=== PATIENT | female | born 1950 | race Caucasian/White ===

== ENCOUNTER 2016-11-27 06:32 | Day surgery (SDC) | payer MEDICARE ==
[~2016-11-27 06:32] MED LIST: KETOROLAC TROMETHAMINE 0.45% 4 DROP/0.4 ML DROPERETTE OD PRN
[2016-11-27] MEDS: LIDOCAINE 3.5% OPH GEL/PF 1 ML/TUBE OD PRN ×2 (07:00→07:30)
[2016-11-27] MEDS: TROPICAMIDE 1% OPH SOLN 3 ML OD PRN ×3 (07:01→07:28)
[2016-11-27] MEDS: CYCLOPENTOLATE 0.2%/PHENYLEPHRINE 1% OPH SOLN 2 ML OD PRN ×3 (07:01→07:28)
[2016-11-27] MEDS: BESIFLOXACIN HCL 0.6% OPH SUSP 5 ML BOTTLE OD PRN ×3 (07:02→08:12)
[2016-11-27] MEDS ORDERED: EPINEPHRINE INJ/PF 1 MG/1 ML AMPULE ONE (07:12)
[2016-11-27] MEDS ORDERED: LIDOCAINE 1% INJ-PF (10 MG/ML) 30 ML SDV ONE (07:12)
[2016-11-27] MEDS ORDERED: CHONDR SU A NA/HYALUR INTRAOC KIT (SURGICARE) ONE (07:12)
[2016-11-27] MEDS ORDERED: TOBRAMYCIN SULFATE/DEXAMETH OPH OINTMENT 3.5 GM ONE (07:12)
[2016-11-27] MEDS ORDERED: MIDAZOLAM 2 MG/2 ML INJ ONE ×2 (07:28→07:29)
== END 2016-11-27 08:44 | disposition home or self-care (01) ==
LOC: SC 06:32
PROVIDERS: ATTEND Ophthalmology
PROC: 08RK3JZ Replacement of Left Lens with Synthetic Substitute, Percutaneous Approach (ICD-10-PCS; principal; 2016-11-27 07:45)
DX: H25.11 Age-related nuclear cataract, right eye (principal); E11.9 Type 2 diabetes mellitus without complications; I11.0 Hypertensive heart disease with heart failure; I50.9 Heart failure, unspecified; I49.9 Cardiac arrhythmia, unspecified; Z79.4 Long term (current) use of insulin; Z79.899 Other long term (current) drug therapy; Z79.82 Long term (current) use of aspirin; Z88.8 Allergy status to other drugs, medicaments and biological substances; Z86.73 Personal history of transient ischemic attack (TIA), and cerebral infarction without residual deficits; Z95.810 Presence of automatic (implantable) cardiac defibrillator
CPT/HCPCS: 82962; 66984; V2630; J2250; J3490 ×3; A9270 ×2; J0171; 142

== ENCOUNTER 2016-12-11 06:16 | Day surgery (SDC) | payer MEDICARE ==
[~2016-12-11 06:16] MED LIST changes: -KETOROLAC TROMETHAMINE 0.45% 4 DROP/0.4 ML DROPERETTE OD PRN; +KETOROLAC TROMETHAMINE 0.45% 4 DROP/0.4 ML DROPERETTE OS PRN
[2016-12-11] MEDS ORDERED: FENTANYL CITRATE INJ/PF 100 MCG/2 ML AMPUL ONE (06:41)
[2016-12-11] MEDS ORDERED: MIDAZOLAM 2 MG/2 ML INJ ONE (06:41)
[2016-12-11] MEDS: TROPICAMIDE 1% OPH SOLN 3 ML OS PRN ×3 (06:46→07:06)
[2016-12-11] MEDS: BESIFLOXACIN HCL 0.6% OPH SUSP 5 ML BOTTLE OS PRN ×3 (06:46→07:48)
[2016-12-11] MEDS: CYCLOPENTOLATE 0.2%/PHENYLEPHRINE 1% OPH SOLN 2 ML OS PRN ×3 (06:46→07:06)
[2016-12-11] MEDS: TETRACAINE HCL 0.5% OPH SOLN 0.6 ML DROPERETTE OS PRN ×3 (06:47→07:31)
[2016-12-11] MEDS ORDERED: LIDOCAINE 1% INJ-PF (10 MG/ML) 30 ML SDV ONE (07:09)
[2016-12-11] MEDS ORDERED: TOBRAMYCIN SULFATE/DEXAMETH OPH OINTMENT 3.5 GM ONE (07:09)
[2016-12-11] MEDS ORDERED: EPINEPHRINE INJ/PF 1 MG/1 ML AMPULE ONE (07:09)
[2016-12-11] MEDS ORDERED: CHONDR SU A NA/HYALUR INTRAOC KIT (SURGICARE) ONE (07:09)
== END 2016-12-11 08:29 | disposition home or self-care (01) ==
LOC: SC 06:16
PROVIDERS: ATTEND Ophthalmology
PROC: 08RK3JZ Replacement of Left Lens with Synthetic Substitute, Percutaneous Approach (ICD-10-PCS; principal; 2016-12-11 07:30)
DX: H25.12 Age-related nuclear cataract, left eye (principal); Z98.41 Cataract extraction status, right eye; E11.9 Type 2 diabetes mellitus without complications; I48.91 Unspecified atrial fibrillation; I50.9 Heart failure, unspecified; D86.9 Sarcoidosis, unspecified; Z85.828 Personal history of other malignant neoplasm of skin; Z79.4 Long term (current) use of insulin; Z88.8 Allergy status to other drugs, medicaments and biological substances
CPT/HCPCS: 66984; 82962; V2630; J2250; J3490 ×3; A9270; J0171; J3010; 142

== ENCOUNTER 2018-03-06 15:31 | Observation (INO) | payer MEDICARE ==
--- NOTE | 2018-03-06 15:43 | ER Document Report ---
ED Neuro Symptoms/Deficit - General Stated Complaint: DIFFICULTY WITH SPEECH Time Seen by Provider: 03/06/18 15:38 Notes: Patient is having difficulty with her speech since 8:00 this morning. She apparently either cannot talk or she is not able to say the things she wants to say. She seems to understand questions that are asked of her. Has not had any headache. No loss of consciousness. Does not seem to affect her balance at all as she is able to walk without assistance. Not having any problem holding objects. Denies any headache. says she had an episode like this about 3 years ago but he does not know what the final diagnosis was except that she got better and is been fine until this morning. Patient does not have any asymmetry to her face or movements of her limbs. TRAVEL OUTSIDE OF THE [place] IN LAST 30 DAYS: No - Related Data Allergies/Adverse Reactions: enalapril Allergy (Severe, Verified 03/06/18 15:39) Anaphylaxis insulin detemir [From Levemir] Allergy (Mild, Verified 03/06/18 15:39) Past Medical History - Social History Family History: Reviewed & Not Pertinent - Past Medical History Cardiac Medical History: Reports: Hx Atrial Fibrillation, Hx Coronary Artery Disease, Hx Hypertension Denies: Hx Heart Attack Pulmonary Medical History: Denies: Hx Asthma Neurological Medical History: Reports: Hx Cerebrovascular Accident - 02/22 RESOLVED. Denies: Hx Seizures Endocrine Medical History: Reports: Hx Diabetes Mellitus Type 2 GI Medical History: Denies: Hx Hepatitis, Hx Hiatal Hernia, Hx Ulcer Infectious Medical History: Denies: Hx Hepatitis Past Surgical History: Reports: Hx Appendectomy, Hx Cholecystectomy, Hx Hysterectomy, Hx Pacemaker. Denies: Hx Mastectomy, Hx Open Heart Surgery Discharge - Discharge Referrals: KAISER VALLEJO MD [Primary Care Provider] - Follow up as needed
--- NOTE | 2018-03-06 16:26 | RADIOLOGY REPORT (SQ) ---
EXAM DESCRIPTION: CT HEAD WITHOUT COMPLETED DATE/TIME: 03/06/2018 4:11 pm REASON FOR STUDY: Difficulty with speech,? Stroke COMPARISON: 02/17/2016 TECHNIQUE: Axial images acquired through the brain without intravenous contrast. Images reviewed wi th bone, brain and subdural windows. Additional sagittal and coronal reconstructions were generated. Images stored on PACS. All CT scanners at this facility use dose modulation, iterative reconstruction, and/or weight based d osing when appropriate to reduce radiation dose to as low as reasonably achievable (ALARA). [facility]: Dose Right [facility]: CareDose [facility]: Dose Right [facility]: Teradose 4D [facility]: Smart [employer] RADIATION DOSE: CT Rad equipment meets quality standard of care and radiation dose reduction techniq ues were employed. CTDIvol: 53.2 mGy. DLP: 991 mGy-cm. mGy. LIMITATIONS: None. FINDINGS: VENTRICLES: Normal size and contour. CEREBRUM: No masses. No hemorrhage. No midline shift. No evidence for acute infarction. There are multiple bilateral areas of encephalomalacia and white matter hypodensity, including of the posterior right frontal lobe, anterior left parietal lobe, and left tai radiata. CEREBELLUM: No masses. No hemorrhage. No alteration of density. No evidence for acute infarction. EXTRAAXIAL SPACES: No fluid collections. No masses. ORBITS AND GLOBE: No intra- or extraconal masses. Normal contour of globe without masses. CALVARIUM: No fracture. PARANASAL SINUSES: No fluid or mucosal thickening. SOFT TISSUES: No mass or hematoma. OTHER: No other significant finding. IMPRESSION: No CT evidence of acute stroke or hemorrhage. There are multiple bilateral areas of ence phalomalacia and white matter hypodensity, including of the posterior right frontal lobe, anterior le ft parietal lobe, and left tai radiata, these findings are unchanged from examination dated 2015. MRI may be used to evaluate for acutely superimposed diffusion restricting infarction if devorah ed. EVIDENCE OF ACUTE STROKE: NO. COMMENT: Quality ID # [id number]: Final reports with documentation of one or more dose reduction techniques (e.g., Automated exposure control, adjustment of the mA and/or kV according to patient size, use of iterative reconstruction technique) TECHNICAL DOCUMENTATION: JOB ID: [id number] [employer]- All Rights Reserved Reading location - IP/workstation name: [email or web address]
[2018-03-06 16:36] LABS: ABSOLUTE BASOPHILS # (AUTO) 0.1 10^3/uL (0.0-0.2); ABSOLUTE EOSINOPHILS # (AUTO) 0.3 10^3/uL (0.0-0.6); ABSOLUTE LYMPHOCYTES (AUTO) 5.2 10^3/uL (0.5-4.7); ABSOLUTE MONOCYTES (AUTO) 1.4 10^3/uL (0.1-1.4); ABSOLUTE NEUT (AUTO) 5.7 10^3/uL (1.7-8.2); BASOPHILS % (AUTO) 0.7 % (0-2); EOSINOPHILS % (AUTO) 2.3 % (0-6); HEMATOCRIT 45.7 % (36.0-47.0); HEMOGLOBIN 15.4 g/dL (12.0-15.5); LYMPHOCYTES % (AUTO) 41.1 % (13-45); MEAN CORPUSCULAR HGB CONC 33.7 g/dL (32.0-36.0); MEAN CORPUSCULAR VOLUME 95 fl (80-97); MONOCYTES % (AUTO) 11.3 % (3-13); PLATELET COUNT 435 10^3/uL (150-450); RED BLOOD COUNT 4.81 10^6/uL (3.72-5.28); RED CELL DISTRIBUTION WIDTH 13.2 % (11.5-14.0); SEGMENTED NEUTROPHILS % (AUTO) 44.6 % (42-78); TOTAL CELLS COUNTED % (AUTO) 100 %; WHITE BLOOD COUNT 12.7 10^3/uL (4.0-10.5)
[2018-03-06 16:37] LABS: INTERNATIONAL RATION (INR) 0.98; PARTIAL THROMBOPLASTIN TIME 29.6 SEC (23.5-35.8); PROTHROMBIN TIME 13.5 SEC (11.4-15.4)
--- NOTE | 2018-03-06 16:42 | RADIOLOGY REPORT (SQ) ---
EXAM DESCRIPTION: CHEST SINGLE VIEW COMPLETED DATE/TIME: 03/06/2018 4:31 pm REASON FOR STUDY: Difficulty with speech,? Stroke COMPARISON: 02/17/2016 EXAM PARAMETERS: NUMBER OF VIEWS: One view. TECHNIQUE: Single frontal radiographic view of the chest acquired. RADIATION DOSE: NA LIMITATIONS: None. FINDINGS: LUNGS AND PLEURA: No opacities, masses or pneumothorax. No pleural effusion. MEDIASTINUM AND HILAR STRUCTURES: Calcified mediastinal and hilar nodes. HEART AND VASCULAR STRUCTURES: Stable heart size. No evidence of failure. BONES: No acute findings. HARDWARE: Stable position of defibrillator. OTHER: No other significant finding. IMPRESSION: Stable, chronic changes. TECHNICAL DOCUMENTATION: JOB ID: [id number] [employer]- All Rights Reserved Reading location - IP/workstation name: [email or web address]
[2018-03-06 16:46] LABS: ALANINE AMINOTRANSFERASE 19 U/L (9-52); ALKALINE PHOSPHATASE 91 U/L (38-126); ANION GAP 6 (5-19); ASPARTATE AMINO TRANSFERASE 23 U/L (14-36); BILIRUBIN,DIRECT 0.3 mg/dL (0.0-0.4); BILIRUBIN,TOTAL 0.9 mg/dL (0.2-1.3); BLOOD UREA NITROGEN 18 mg/dL (7-20); CALCIUM 9.9 mg/dL (8.4-10.2); CARBON DIOXIDE 31 mmol/L (22-30); CHLORIDE 101 mmol/L (98-107); CREATINE KINASE 23 U/L (30-135); GLUCOSE 155 mg/dL (75-110); POTASSIUM 4.7 mmol/L (3.6-5.0); SODIUM 138.3 mmol/L (137-145); TOTAL PROTEIN 7.4 g/dL (6.3-8.2)
[2018-03-06 17:10] LABS: CREATINE KINASE MB 0.69 ng/mL (<4.55)
--- NOTE | 2018-03-06 17:19 | ER Document Report ---
ED General - General Chief Complaint: S/S of Possible Stroke Stated Complaint: DIFFICULTY WITH SPEECH Time Seen by Provider: 03/06/18 15:38 Information source: Patient Notes: Patient is a 67-year-old female that presents with her awaking with some expressive aphasia. Patient's states that he noticed no slurred speech, weakness or numbness. The patient supposedly had a similar episode around 3 years ago and was admitted for this. Patient does not appropriately to questions. Patient appears to know what she wants to say but has some difficulty articulating. She denies any headache, neck pain, chest pain, abdominal pain, weakness or numbness. Patient and deny any recent infections such as runny nose, congestion, fevers, vomiting, or diarrhea. TRAVEL OUTSIDE OF THE [place] IN LAST 30 DAYS: No - HPI Onset: Other - See above Onset/Duration: Persistent, Better Quality of pain: No pain Severity: Moderate Pain Level: Denies Associated symptoms: Other - See above Exacerbated by: Denies Relieved by: Denies Similar symptoms previously: Yes Recently seen / treated by doctor: No - Related Data Allergies/Adverse Reactions: enalapril Allergy (Severe, Verified 03/06/18 15:39) Anaphylaxis insulin detemir [From Levemir] Allergy (Mild, Verified 03/06/18 15:39) Past Medical History - Social History Smoking Status: Never Smoker Chew tobacco use (# tins/day): No Frequency of alcohol use: None Drug Abuse: None Family History: Reviewed & Not Pertinent Patient has suicidal ideation: No Patient has homicidal ideation: No - Past Medical History Cardiac Medical History: Reports: Hx Atrial Fibrillation, Hx Coronary Artery Disease, Hx Hypertension Denies: Hx Heart Attack Pulmonary Medical History: Denies: Hx Asthma Neurological Medical History: Reports: Hx Cerebrovascular Accident - 02/22 RESOLVED. Denies: Hx Seizures Endocrine Medical History: Reports: Hx Diabetes Mellitus Type 2 Renal/ Medical History: Denies: Hx Peritoneal Dialysis GI Medical History: Denies: Hx Hepatitis, Hx Hiatal Hernia, Hx Ulcer Infectious Medical History: Denies: Hx Hepatitis Past Surgical History: Reports: Hx Appendectomy, Hx Cardiac Surgery - pacemaker placed, Hx Cholecystectomy, Hx Hysterectomy, Hx Pacemaker. Denies: Hx Mastectomy, Hx Open Heart Surgery Review of Systems - Review of Systems Constitutional: denies: Fever EENT: denies: Eye discharge, Nose discharge Respiratory: denies: Short of breath Gastrointestinal: denies: Vomiting Genitourinary: denies: Dysuria Musculoskeletal: denies: Leg swelling Skin: Other - no hives. denies: Rash Neurological/Psychological: Other - no slurred speech -: Yes All other systems reviewed and negative Physical Exam - Vital signs Vitals: Pulse Ox 98 03/06/18 16:14 Notes: Reviewed vital signs and nursing note as charted by RN. CONSTITUTIONAL: Alert and does nod appropriately to questions. Well-appearing; well-nourished HEAD: Normocephalic; atraumatic EYES: PERRL; full extraocular range of motion; conjunctivae clear, sclerae non- icteric ENT: Normal nose; no rhinorrhea; moist mucous membranes; pharynx without lesions noted NECK: Supple without meningismus; non-tender; no cervical lymphadenopathy, no m asses CARD: Regular rate and rhythm; no murmurs; symmetric distal pulses RESP: Normal chest excursion without splinting or tachypnea; breath sounds clear and equal bilaterally; no wheezes, no rhonchi, no rales ABD/GI: Normal bowel sounds; non-distended; soft, non-tender; no palpable organomegaly or masses BACK: The back appears normal and is non-tender to palpation EXT: Normal ROM in all joints; non-tender to palpation; no edema SKIN: No acute lesions noted NEURO: CN 2-12 intact; patient does appear to have some expressive aphasia; 5/5 bilateral upper and lower extremity strength with sensation intact to light touch PSYCH: The patient's mood and manner are appropriate. Grooming and personal hygiene are appropriate. Course - Re-evaluation Re-evalutation: Given the above history and physical examination, we will order CT scan of the head, basic labs, cardiac labs, and reassess. Given the time onset of the symptomatology, I do not believe that the patient is a TPA candidate. Given that the patient's NIH score is only a 1, with a VAN negative exam, I do not believe a CTA head and neck with contrast is necessary at this moment. EKG shows a rate of 85, atrial sensed pacemaker with no ST elevation or depressi on. No change from previous findings. 03/06/18 17:20 CT scan of the head and laboratory values and EKG as recorded. Patient still has no weakness or numbness. CT scan does show some encephalomalacia which appears to be chronic? Given the above history and physical examination, I believe that the patient requires observation for further investigation including an MRI. Patient will be admitted to the hospitalist. - Vital Signs Vital signs: Temp Pulse Resp BP Pulse Ox 78 18 115/68 98 03/06/18 16:20 03/06/18 16:20 03/06/18 16:20 03/06/18 16:20 - Laboratory Result Diagrams: 03/06/18 16:22 03/06/18 16:22 Laboratory results interpreted by me: 03/06/18 03/06/18 03/06/18 16:19 16:22 16:22 WBC 12.7 H Absolute Lymphocytes 5.2 H Carbon Dioxide 31 H Glucose 155 H POC Glucose 145 H Creatine Kinase 23 L Discharge - Discharge Clinical Impression: Expressive aphasia Condition: Fair Disposition: ADMITTED OBSERVATION Admitting Provider: Hospitalist Unit Admitted: Telemetry Referrals: KAISER VALLEJO MD [Primary Care Provider] - Follow up as needed
[2018-03-06 17:26] LABS: TROPONIN I 0.036 ng/mL
[2018-03-06] MEDS ORDERED: ZOLPIDEM TARTRATE 5 MG TABLET PO PRN (18:00)
[2018-03-06] MEDS ORDERED: ONDANSETRON HCL INJ/PF 4 MG/2 ML SDV IV PRN (18:00)
[2018-03-06] MEDS ORDERED: DEXTROSE 40% GEL 15 GM TUBE PO PRN ×2 (18:15)
[2018-03-06] MEDS ORDERED: INSULIN REG, HUMAN 100 UNIT/ML 3 ML VIAL (PYX) SUBCUT PRN (18:15)
[2018-03-06] MEDS ORDERED: GLUCAGON,HUMAN RECOMB 1 MG INJ IM PRN (18:15)
[2018-03-06] MEDS ORDERED: DEXTROSE 50%-WATER 25 GM/50 ML DISP.SYRIN IV PRN ×2 (18:15)
--- NOTE | 2018-03-06 18:30 | PDOC H&P ---
History of Present Illness Admission Date/PCP: 03/06/18 17:32 KAISER VALLEJO MD Patient complains of: Difficulty in expressing her feelings/thoughts History of Present Illness: DIANA OWENS is a 67 year old female history of coronary artery disease with defibrillator placement, history of wall replacement patient does not know exactly what kind of surgery, hypertension, diabetes mellitus, hyperlipidemia, came to the emergency room with complaints of difficulty in expressing her feelings and thoughts. According to the patient know what to say but is unable to say so. Denies any complaints of headaches dizziness falls, seizures. Problems with urination or bowel movement. His any recent upper respiratory tract infections. Denies any problems with walking. denies any nausea vomiting diarrhea. In the emergency room CT head without contrast was done and was compared to previous CT scan done 3 years ago basically showing similar findings an encephalomalacia. He went to see the patient in the emergency room patient is comfortably in the bed smiling able to follow the commands. But she has a difficulty in expression she is unable to give her date of unable to give her home address unable to give her past medical history. Past Medical History Cardiac Medical History: Reports: Atrial Fibrillation, Coronary Artery Disease, Hypertension Denies: Myocardial Infarction Pulmonary Medical History: Denies: Asthma Neurological Medical History: Denies: Seizures Endocrine Medical History: Reports: Diabetes Mellitus Type 2 GI Medical History: Denies: Hepatitis, Hiatal Hernia Hematology: Denies: Anemia, Sickle Cell Disease Past Surgical History Past Surgical History: Reports: Appendectomy, Cholecystectomy, Hysterectomy, Pacemaker Denies: Amputation, Mastectomy Social History Smoking Status: Never Smoker Frequency of Alcohol Use: None Hx Recreational Drug Use: No Drugs: None Hx Prescription Drug Abuse: No - Advance Directive Resuscitation Status: Full Code Family History Family History: Reviewed & Not Pertinent Parental Family History Reviewed: Yes - Brother has of cancer Children Family History Reviewed: Yes Sibling(s) Family History Reviewed.: Yes Medication/Allergy Home Medications: Bisoprolol Fumarate 0.5 tab PO QAM 02/17/16 Digoxin [Lanoxin 0.25 mg Tablet] 1 tab PO Q48H 02/17/16 Insulin Glargine,Hum.rec.anlog [Lantus Insulin 100 Unit/mL] 38 units SQ QHS 02/17/16 Isosorbide Mononitrate [Isosorbide Mononitrate ER] 1 tab PO TID 02/17/16 Spironolactone 0.5 tab PO DAILY 02/17/16 Furosemide [Lasix 20 mg Tablet] 2 tab PO Q12 02/18/16 Acetaminophen [Acetaminophen Extra Strength] 1,000 mg PO DAILY 11/26/16 Aspirin [Aspirin EC] 81 mg PO DAILY 11/26/16 Losartan Potassium 100 mg PO DAILY 11/26/16 Sotalol HCl [Sotalol] 80 mg PO DAILY 11/26/16 Duloxetine HCl [Cymbalta] 60 mg PO DAILY 12/11/16 Allergies/Adverse Reactions: enalapril Allergy (Severe, Verified 03/06/18 15:39) Anaphylaxis insulin detemir [From Levemir] Allergy (Mild, Verified 03/06/18 15:39) Review of Systems Constitutional: ABSENT: fatigue, fever(s), headache(s), weakness Eyes: ABSENT: visual disturbances Ears: ABSENT: hearing changes Cardiovascular: ABSENT: dyspnea on exertion, edema, orthropnea Respiratory: ABSENT: cough, dyspnea, hemoptysis Gastrointestinal: ABSENT: diarrhea, nausea, vomiting Musculoskeletal: ABSENT: back pain, joint swelling Neurological: PRESENT: abnormal speech. ABSENT: confusion, convulsions, dizziness, focal weakness, frequent falls, lack of coordination Psychiatric: ABSENT: anxiety, depression Physical Exam Vital Signs: Temp Pulse Resp BP Pulse Ox 78 18 115/68 98 03/06/18 16:20 03/06/18 16:20 03/06/18 16:20 03/06/18 16:20 Intake & Output 03/05/18 03/06/18 03/07/18 06:59 06:59 06:59 Weight 58.9 kg General appearance: PRESENT: no acute distress Head exam: PRESENT: atraumatic Eye exam: PRESENT: PERRLA Neck exam: ABSENT: carotid bruit, JVD, lymphadenopathy, thyromegaly Respiratory exam: PRESENT: clear to auscultation shanique. ABSENT: rales, rhonchi, wheezes Cardiovascular exam: PRESENT: RRR, systolic murmur, other - Harsh systolic murmur. Patient is giving history of wall replacement we do not know the specific details.. ABSENT: diastolic murmur, rubs GI/Abdominal exam: PRESENT: normal bowel sounds, soft. ABSENT: distended, guarding, mass, organolmegaly, rebound, tenderness Neurological exam: PRESENT: alert, awake, oriented to person, oriented to place, oriented to time, oriented to situation, CN II-XII grossly intact. ABSENT: motor sensory deficit Psychiatric exam: PRESENT: appropriate affect, normal mood. ABSENT: homicidal ideation, suicidal ideation Results Laboratory Results: 03/06/18 16:22 03/06/18 16:22 03/06/18 03/06/18 16:22 16:22 WBC 12.7 H RBC 4.81 Hgb 15.4 Hct 45.7 MCV 95 MCH 32.0 MCHC 33.7 RDW 13.2 Plt Count 435 Seg Neutrophils % 44.6 Lymphocytes % 41.1 Monocytes % 11.3 Eosinophils % 2.3 Basophils % 0.7 Absolute Neutrophils 5.7 Absolute Lymphocytes 5.2 H Absolute Monocytes 1.4 Absolute Eosinophils 0.3 Absolute Basophils 0.1 Sodium 138.3 Potassium 4.7 Chloride 101 Carbon Dioxide 31 H Anion Gap 6 BUN 18 Creatinine 0.73 Est GFR ( Amer) > 60 Est GFR (Non-Af Amer) > 60 Glucose 155 H Calcium 9.9 Total Bilirubin 0.9 AST 23 ALT 19 Alkaline Phosphatase 91 Total Protein 7.4 Albumin 4.0 03/06/18 03/06/18 16:22 16:22 Creatine Kinase 23 L CK-MB (CK-2) 0.69 Troponin I 0.036 Impressions: Chest X-Ray 03/06/18 15:45 IMPRESSION: Stable, chronic changes. Head CT 03/06/18 15:45 IMPRESSION: No CT evidence of acute stroke or hemorrhage. There are multiple bilateral areas of encephalomalacia and white matter hypodensity, including of the posterior right frontal lobe, anterior left parietal lobe, and left tai radiata, these findings are unchanged from examination dated 02/17/2016. MRI may be used to evaluate for acutely superimposed diffusion restricting infarction if desired. EVIDENCE OF ACUTE STROKE: NO. Assessment & Plan - Diagnosis (1) Expressive aphasia Is this a current diagnosis for this admission?: Yes Plan: 03/06/2018-plan is to put the patient in observation and telemetry. Cardiac monitoring. Swallowing evaluation. Speech therapy consult. PT OT consult. MRI of the brain without contrast was requested. Carotid Doppler was requested. Patient was already on aspirin started on Plavix 75 mg p.o. daily. Started on simvastatin 20 mg p.o. nightly. We are going to check lipid panel tomorrow. Neurochecks every 4 hours for 24 hours requested. Aspiration fall seizure pre cautions were placed. (2) Diabetes Qualifiers: Diabetes mellitus type: type 2 Is this a current diagnosis for this admission?: Yes Plan: 03/06/2018-patient's blood sugar is 155 she was placed on insulin sliding scale before meals and at bedtime. Hemoglobin A1c was requested for tomorrow. Started on diabetic diet. Dietary consult was requested. Patient on glargine insulin 28 units at night. (3) Atrial fibrillation Is this a current diagnosis for this admission?: Yes Plan: 03/06/2018 patient has history of atrial fibrillation not on Coumadin or Eliquis. EKG shows pacemaker rhythm. (4) Pacemaker Is this a current diagnosis for this admission?: Yes Plan: 03/06/2018-patient has a pacemaker. EKG shows pacemaker rhythm. Patient denies any chest pains. (5) Encephalomalacia Is this a current diagnosis for this admission?: Yes Plan: 03/06/2018-CT scan done today shows encephalopmalacia which is bilateral and white matter hypodensity, including of the posterior right frontal lobe, an terior left parietal lobe, left coronary radiator. The findings are compared to the CT scan was done 3 years ago no acute changes compared to the previous CT scan that was done 3 years ago. - Time Time Spent: 50 to 70 Minutes Critical Time spent with patient: 15-24 minutes Medications reviewed and adjusted accordingly: Yes Anticipated discharge: Home
[2018-03-06] MEDS ORDERED: DIGOXIN 0.25 MG TABLET PO SCH (19:00)
[2018-03-06] MEDS ORDERED: FUROSEMIDE 20 MG TABLET PO SCH (22:00)
[2018-03-06] MEDS ORDERED: INSULIN GLARGINE,HUM.REC.ANLOG 300 UNIT/3 ML INSULN.PEN SUBCUT SCH (22:00)
[2018-03-06] MEDS: ISOSORBIDE MONONITRATE 30 MG TAB.ER.24H PO SCH (22:31)
[2018-03-06] MEDS: FAMOTIDINE 20 MG TABLET PO SCH (22:31)
[2018-03-06] MEDS: SOTALOL HCL 80 MG TABLET PO SCH (22:31)
[2018-03-06] MEDS: SIMVASTATIN 10 MG TABLET PO SCH (22:31)
[2018-03-06] MEDS: INSULIN GLARGINE,HUM.REC.ANLOG 300 UNIT/3 ML INSULN.PEN SUBCUT SCH (22:32)
[2018-03-06 23:15] LABS: CREATINE KINASE MB 0.4 ng/mL (<4.55); TROPONIN I 0.033 ng/mL
[2018-03-07] MEDS: ISOSORBIDE MONONITRATE 30 MG TAB.ER.24H PO SCH ×3 (05:43→21:45)
[2018-03-07 06:26] LABS: INTERNATIONAL RATION (INR) 0.98; PROTHROMBIN TIME 13.5 SEC (11.4-15.4)
[2018-03-07 06:27] LABS: ABSOLUTE BASOPHILS # (AUTO) 0.1 10^3/uL (0.0-0.2); ABSOLUTE EOSINOPHILS # (AUTO) 0.2 10^3/uL (0.0-0.6); ABSOLUTE LYMPHOCYTES (AUTO) 4.6 10^3/uL (0.5-4.7); ABSOLUTE MONOCYTES (AUTO) 1.5 10^3/uL (0.1-1.4); ABSOLUTE NEUT (AUTO) 9.3 10^3/uL (1.7-8.2); BASOPHILS % (AUTO) 0.4 % (0-2); EOSINOPHILS % (AUTO) 1.3 % (0-6); HEMATOCRIT 44.6 % (36.0-47.0); HEMOGLOBIN 15.3 g/dL (12.0-15.5); LYMPHOCYTES % (AUTO) 29.6 % (13-45); MEAN CORPUSCULAR HEMOGLOBIN 32.5 pg (27.0-33.4); MEAN CORPUSCULAR HGB CONC 34.4 g/dL (32.0-36.0); MEAN CORPUSCULAR VOLUME 95 fl (80-97); MONOCYTES % (AUTO) 9.3 % (3-13); PLATELET COUNT 406 10^3/uL (150-450); RED BLOOD COUNT 4.71 10^6/uL (3.72-5.28); RED CELL DISTRIBUTION WIDTH 12.9 % (11.5-14.0); SEGMENTED NEUTROPHILS % (AUTO) 59.4 % (42-78); TOTAL CELLS COUNTED % (AUTO) 100 %; WHITE BLOOD COUNT 15.7 10^3/uL (4.0-10.5)
[2018-03-07 07:01] LABS: ALANINE AMINOTRANSFERASE 17 U/L (9-52); ALBUMIN 3.6 g/dL (3.5-5.0); ALKALINE PHOSPHATASE 82 U/L (38-126); ANION GAP 10 (5-19); ASPARTATE AMINO TRANSFERASE 28 U/L (14-36); BILIRUBIN,DIRECT 0.3 mg/dL (0.0-0.4); BILIRUBIN,TOTAL 0.7 mg/dL (0.2-1.3); BLOOD UREA NITROGEN 17 mg/dL (7-20); CALCIUM 9.5 mg/dL (8.4-10.2); CARBON DIOXIDE 26 mmol/L (22-30); CHLORIDE 104 mmol/L (98-107); CHOLESTEROL 193.32 mg/dL (0-200); GLUCOSE 111 mg/dL (75-110); SODIUM 140.1 mmol/L (137-145); TOTAL PROTEIN 7.1 g/dL (6.3-8.2); TRIGLYCERIDES 254 mg/dL (<150)
[2018-03-07 07:10] LABS: CREATINE KINASE MB 0.4 ng/mL (<4.55); TROPONIN I 0.037 ng/mL
[2018-03-07 07:12] LABS: DIRECT LDL 118 mg/dL (<100)
[2018-03-07 07:15] LABS: CREATINE KINASE < 20 U/L (30-135); VLDL CHOLESTEROL 50.8 mg/dL (10-31)
[2018-03-07] MEDS ORDERED: (PENDING PHARMACY ID) (Bisoprolol Fumarate [Zebeta 5 Mg Tablet] 2.5 MG) PO SCH (08:00)
[2018-03-07] MEDS ORDERED: BISOPROLOL FUMARATE PO SCH (08:00)
--- NOTE | 2018-03-07 09:15 | PDOC PROGRESS REPORT ---
Subjective Progress Note for:: 03/07/18 Subjective:: Patient having the low-grade fever since the admission T-max is 99.7. WBC went up to 15,700. Chest x-ray was normal. I started her on doxycycline 100 mg p.o. twice daily. Patient says she still does not know where she is at. No focal neurological deficits. But she has still have expressive aphasia. Reason For Visit: EXPRESSIVE APHASIS Physical Exam Vital Signs: Temp Pulse Resp BP Pulse Ox 99.7 F 106 H 16 116/68 95 03/07/18 07:18 03/07/18 08:00 03/07/18 08:00 03/07/18 08:00 03/07/18 08:00 Intake & Output 03/06/18 03/07/18 03/08/18 06:59 06:59 06:59 Output Total 0 Balance 0 Weight 58.4 kg General appearance: PRESENT: no acute distress Head exam: PRESENT: atraumatic Eye exam: PRESENT: PERRLA Neck exam: ABSENT: carotid bruit, JVD, lymphadenopathy, thyromegaly Respiratory exam: PRESENT: clear to auscultation shanique. ABSENT: rales, rhonchi, wheezes Cardiovascular exam: PRESENT: RRR. ABSENT: diastolic murmur, rubs, systolic murmur GI/Abdominal exam: PRESENT: normal bowel sounds, soft. ABSENT: distended, guarding, mass, organolmegaly, rebound, tenderness Neurological exam: PRESENT: alert, awake, CN II-XII grossly intact, other - Has expressive aphasia. She does not know where she is at. Unable to give her date of . But she states her is coming later on to check on her. Psychiatric exam: PRESENT: appropriate affect, normal mood. ABSENT: homicidal ideation, suicidal ideation Results Laboratory Results: 03/07/18 04:59 03/07/18 04:59 03/06/18 03/06/18 03/07/18 16:22 16:22 04:59 WBC 12.7 H 15.7 H RBC 4.81 4.71 Hgb 15.4 15.3 Hct 45.7 44.6 MCV 95 95 MCH 32.0 32.5 MCHC 33.7 34.4 RDW 13.2 12.9 Plt Count 435 406 Seg Neutrophils % 44.6 59.4 Lymphocytes % 41.1 29.6 Monocytes % 11.3 9.3 Eosinophils % 2.3 1.3 Basophils % 0.7 0.4 Absolute Neutrophils 5.7 9.3 H Absolute Lymphocytes 5.2 H 4.6 Absolute Monocytes 1.4 1.5 H Absolute Eosinophils 0.3 0.2 Absolute Basophils 0.1 0.1 Sodium 138.3 Potassium 4.7 Chloride 101 Carbon Dioxide 31 H Anion Gap 6 BUN 18 Creatinine 0.73 Est GFR ( Amer) > 60 Est GFR (Non-Af Amer) > 60 Glucose 155 H Calcium 9.9 Magnesium Total Bilirubin 0.9 AST 23 ALT 19 Alkaline Phosphatase 91 Total Protein 7.4 Albumin 4.0 Triglycerides Cholesterol LDL Cholesterol Direct VLDL Cholesterol HDL Cholesterol TSH 03/07/18 03/07/18 04:59 04:59 WBC RBC Hgb Hct MCV MCH MCHC RDW Plt Count Seg Neutrophils % Lymphocytes % Monocytes % Eosinophils % Basophils % Absolute Neutrophils Absolute Lymphocytes Absolute Monocytes Absolute Eosinophils Absolute Basophils Sodium 140.1 Potassium 4.0 Chloride 104 Carbon Dioxide 26 Anion Gap 10 BUN 17 Creatinine 0.59 Est GFR ( Amer) > 60 Est GFR (Non-Af Amer) > 60 Glucose 111 H Calcium 9.5 Magnesium 2.3 Total Bilirubin 0.7 AST 28 ALT 17 Alkaline Phosphatase 82 Total Protein 7.1 Albumin 3.6 Triglycerides 254 H Cholesterol 193.32 LDL Cholesterol Direct 118 H VLDL Cholesterol 50.8 H HDL Cholesterol 21 L TSH 0.59 03/06/18 03/06/18 03/06/18 16:22 16:22 22:06 Creatine Kinase 23 L 23 L CK-MB (CK-2) 0.69 Troponin I 0.036 NT-Pro-B Natriuret Pep 03/06/18 03/07/18 03/07/18 22:06 04:59 04:59 Creatine Kinase < 20 L CK-MB (CK-2) 0.40 0.40 Troponin I 0.033 0.037 NT-Pro-B Natriuret Pep 3880 H Impressions: Chest X-Ray 03/06/18 15:45 IMPRESSION: Stable, chronic changes. Head CT 03/06/18 15:45 IMPRESSION: No CT evidence of acute stroke or hemorrhage. There are multiple bilateral areas of encephalomalacia and white matter hypodensity, including of the posterior right frontal lobe, anterior left parietal lobe, and left tai radiata, these findings are unchanged from examination dated 02/17/2016. MRI may be used to evaluate for acutely superimposed diffusion restricting infarction if desired. EVIDENCE OF ACUTE STROKE: NO. Assessment & Plan - Diagnosis (1) Expressive aphasia Is this a current diagnosis for this admission?: Yes Plan: 03/06/2018-plan is to put the patient in observation and telemetry. Cardiac monitoring. Swallowing evaluation. Speech therapy consult. PT OT consult. MRI of the brain without contrast was requested. Carotid Doppler was requested. Patient was already on aspirin started on Plavix 75 mg p.o. daily. Started on simvastatin 20 mg p.o. nightly. We are going to check lipid panel tomorrow. Neurochecks every 4 hours for 24 hours requested. Aspiration fall seizure precautions were placed. 03/07/2018-CT head was negative for acute changes. But it shows encephalo malasia. Unable to do the MRI of the head because of the pacemaker. We are going to continue to follow her closely speech consult was requested PT OT consult was requested. swallow evaluation was negative. (2) Diabetes Qualifiers: Diabetes mellitus type: type 2 Is this a current diagnosis for this admission?: Yes Plan: 03/06/2018-patient's blood sugar is 155 she was placed on insulin sliding scale before meals and at bedtime. Hemoglobin A1c was requested for tomorrow. Started on diabetic diet. Dietary consult was requested. Patient on glargine insulin 28 units at night. 03/07/2018 hemoglobin A1c is 7.1. Latest blood sugar is 113. She is on glargine insulin 20 units at bedtime and she is also on insulin sliding scale. Plan is to continue the present management. (3) Atrial fibrillation Qualifiers: Atrial fibrillation type: chronic Qualified Code(s): I48.2 - Chronic atrial fibrillation Is this a current diagnosis for this admission?: Yes Plan: 03/06/2018 patient has history of atrial fibrillation not on Coumadin or Eliquis. EKG shows pacemaker rhythm. 03/07/2018 patient is giving history of atrial fibrillation. EKG shows pacemaker rhythm. She is not on any anticoagulation she was on aspirin 81 mg p.o. daily. I started her on Plavix 75 mg p.o. daily. (4) Pacemaker Is this a current diagnosis for this admission?: Yes Plan: 03/06/2018-patient has a pacemaker. EKG shows pacemaker rhythm. Patient denies any chest pains. 03/07/2018 patient has history of pacemaker placed. Single. No complaints of chest pain. EKG shows pacemaker rhythm. (5) Encephalomalacia Is this a current diagnosis for this admission?: Yes Plan: 03/06/2018-CT scan done today shows encephalopmalacia which is bilateral and wh ite matter hypodensity, including of the posterior right frontal lobe, anterior left parietal lobe, left coronary radiator. The findings are compared to the CT scan was done 3 years ago no acute changes compared to the previous CT scan that was done 3 years ago. 03/07/2018-patient has an careful malacia on the CT scan she has the same findings in the CT done 3 years ago. Unable to do the MRI of the brain. Carotid Doppler is pending. Going to arrange for the CTA of the neck with IV contrast. (6) Leukocytosis Is this a current diagnosis for this admission?: Yes Plan: 03/07/2018-WBCs increased to 15,700, patient is having the low-grade fever temperature is 99.7. Patient was started on doxycycline 100 mg p.o. twice saba y. Chest x-ray was negative for infiltrates. I am going to request for urine analysis urine culture and blood cultures times 2. I am going to keep the patient on observation for another day because of the increasing WBC and low- grade fever. - Time Time Spent with patient: 15-24 minutes Medications reviewed and adjusted accordingly: Yes Anticipated discharge: Home
[2018-03-07] MEDS: DULOXETINE HCL 30 MG CAPSULE.DR PO SCH (09:52)
[2018-03-07] MEDS: ATENOLOL 50 MG TABLET PO SCH (09:53)
[2018-03-07] MEDS: SOTALOL HCL 80 MG TABLET PO SCH ×2 (09:53→21:45)
[2018-03-07] MEDS: SPIRONOLACTONE 25 MG TABLET PO SCH (09:53)
[2018-03-07] MEDS: CLOPIDOGREL BISULFATE 75 MG TABLET PO SCH (09:53)
[2018-03-07] MEDS: FAMOTIDINE 20 MG TABLET PO SCH ×2 (09:53→21:45)
[2018-03-07] MEDS: DOXYCYCLINE HYCLATE 100 MG TABLET PO SCH ×2 (09:53→21:45)
[2018-03-07] MEDS: LOSARTAN POTASSIUM 50 MG TABLET PO SCH (09:53)
[2018-03-07] MEDS: ASPIRIN 81 MG TABLET, ENT COATED PO SCH (09:53)
[2018-03-07] MEDS: DOCUSATE SODIUM 100 MG CAPSULE PO SCH (09:54)
[2018-03-07] MEDS: ENOXAPARIN SODIUM INJ 40 MG/0.4 ML DISP.SYRIN SUBCUT SCH (09:54)
[2018-03-07] MEDS ORDERED: SOTALOL HCL 80 MG TABLET PO SCH (10:00)
[2018-03-07] MEDS ORDERED: SPIRONOLACTONE 25 MG TABLET PO SCH (10:00)
[2018-03-07] MEDS ORDERED: FUROSEMIDE 40 MG TABLET PO SCH (10:00)
[2018-03-07] MEDS ORDERED: ISOSORBIDE MONONITRATE 30 MG TAB.ER.24H PO SCH (10:00)
[2018-03-07] MEDS ORDERED: (PENDING PHARMACY ID) (Losartan Potassium [Losartan Potassium] 100 MG) PO SCH (10:00)
[2018-03-07 11:27] LABS: CREATINE KINASE MB 0.48 ng/mL (<4.55); TROPONIN I 0.03 ng/mL
--- NOTE | 2018-03-07 12:21 | RADIOLOGY REPORT (SQ) ---
EXAM DESCRIPTION: CAROTID DOPPLER COMPLETED DATE/TIME: 03/06/2018 8:37 pm REASON FOR STUDY: cva E11.40 TYPE 2 DIABETES MELLITUS WITH DIABETIC NEUROPATHY, UN D50.9 IRON DEFI CIENCY ANEMIA, UNSPECIFIED I50.32 CHRONIC DIASTOLIC (CONGESTIVE) HEART FAILURE COMPARISON: None. TECHNIQUE: Grayscale ultrasound, Doppler velocity and spectra, and color Doppler images acquired of the extra-cranial carotid and vertebral arteries. Images stored on PACS. LIMITATIONS: None. FINDINGS: RIGHT CAROTID CCA Velocities: Within normal limits. ICA Velocities Peak systolic 1.0 m/s. End diastolic 0.28 m/s. Proximal ICA/CCA peak systolic ratio 1.2. Soft plaque. Less than 50% narrowing. LEFT CAROTID CCA Velocities: Within normal limits. ICA Velocities Peak systolic 1.1 m/s. End diastolic 0.30 m/s. Proximal ICA/CCA peak systolic ratio 1.5. Soft plaque noted. Less than 50% narrowing. VERTEBRAL ARTERIES: Antegrade flow. Normal waveforms. SUBCLAVIAN ARTERIES: No finding. OTHER: No other significant finding. IMPRESSION: NO HEMODYNAMICALLY SIGNIFICANT STENOSIS. COMMENT: Quality ID #195: Velocity criteria are extrapolated from the diameter data as defined by t he Society of Radiologists in Ultrasound Consensus Conference. Radiology 2003: 229; 340-346. TECHNICAL DOCUMENTATION: JOB ID: [id number] [employer]- All Rights Reserved Reading location - IP/workstation name: [email or web address]
--- NOTE | 2018-03-07 12:23 | RADIOLOGY REPORT (SQ) ---
EXAM DESCRIPTION: CTA NECK COMPLETED DATE/TIME: 03/07/2018 10:27 am REASON FOR STUDY: cva E11.40 TYPE 2 DIABETES MELLITUS WITH DIABETIC NEUROPATHY, UN D50.9 IRON DEFI CIENCY ANEMIA, UNSPECIFIED I50.32 CHRONIC DIASTOLIC (CONGESTIVE) HEART FAILURE COMPARISON: Carotid Doppler from 1 day previously. TECHNIQUE: Axial dynamic scanning technique with dynamic contrast enhancement through the extra-aircraft metalsmith nial carotid and vertebral arteries. Multiplanar reconstruction. 3-D MIPS and Volume-rendered imag es acquired at the workstation and saved to PACS. Images are reviewed in soft tissue, bone, lung w indows. All CT scanners at this facility use dose modulation, iterative reconstruction, and/or weight based d osing when appropriate to reduce radiation dose to as low as reasonably achievable (ALARA). [facility]: Dose Right [facility]: CareDose [facility]: Dose Right [facility]: Teradose 4D [facility]: Ventario CONTRAST TYPE AND DOSE: contrast/concentration: Isovue 350.00 mg/ml; Total Contrast Delivered: 70.0 ml; Total Saline Delivered: 75.0 ml RENAL FUNCTION: GFR > 60. LIMITATIONS: None. FINDINGS: AORTIC ARCH: Normal three-vessel origin. Bilateral subclavian arteries are patent. No d issection. RIGHT CAROTIDS: Patent common, internal and external carotid arteries without suggestion of significa nt stenosis or irregular plaque. No dissection. RIGHT VERTEBRAL: Patent. No dissection. LEFT CAROTIDS: Patent common, internal and external carotid arteries without suggestion of significan t stenosis or irregular plaque. No dissection. LEFT VERTEBRAL: Patent. No dissection. OTHER: No enhancing visualized brain lesions. Bilateral effusions with ground-glass infiltrates and scarring in the upper lung torrez. Extensive mediastinal adenopathy, likely hilar adenopathy. Much of this looks calcified. Presumed history of sarcoid or similar pathology. OTHER: 3-D reconstructions confirm findings. IMPRESSION: NORMAL CTA OF THE EXTRA-CRANIAL CAROTID AND VERTEBRAL ARTERIES. COMMENT: Quality ID #195: Measurements of distal internal carotid diameter were used as the denomina tor for stenosis measurement. TECHNICAL DOCUMENTATION: JOB ID: [id number] Quality ID # [id number]: Final reports with documentation of one or more dose reduction techniques (e.g., Au tomated exposure control, adjustment of the mA and/or kV according to patient size, use of iterative reconstruction technique) 2010 [employer]- All Rights Reserved Reading location - IP/workstation name: [email or web address]
--- NOTE | 2018-03-07 12:52 | EKG REPORT ---
SEVERITY:- ABNORMAL ECG - ATRIAL-SENSED VENTRICULAR-PACED RHYTHM : Confirmed by: Shiraz Romero 07-Mar-2018 12:51:27
--- NOTE | 2018-03-07 12:52 | EKG REPORT ---
SEVERITY:- ABNORMAL ECG - ATRIAL-SENSED VENTRICULAR-PACED RHYTHM VPC : Confirmed by: Shiraz Romero 07-Mar-2018 12:51:20
--- NOTE | 2018-03-07 13:07 | ER Document Report ---
ED Medical Screen (RME) - General Chief Complaint: S/S of Possible Stroke Stated Complaint: DIFFICULTY WITH SPEECH Time Seen by Provider: 03/06/18 15:38 Notes: Patient is having difficulty with her speech since 8:00 this morning. She apparently either cannot talk or she is not able to say the things she wants to say. She seems to understand questions that are asked of her. Has not had any headache. No loss of consciousness. Does not seem to affect her balance at all as she is able to walk without assistance. Not having any problem holding objects. Denies any headache. says she had an episode like this about 3 years ago but he does not know what the final diagnosis was except that she got better and is been fine until this morning. Patient does not have any asymmetry to her face or movements of her limbs. TRAVEL OUTSIDE OF THE [place] IN LAST 30 DAYS: No - Related Data Allergies/Adverse Reactions: enalapril Allergy (Severe, Verified 03/06/18 15:39) Anaphylaxis insulin detemir [From Levemir] Allergy (Mild, Verified 03/06/18 15:39) Past Medical History - Social History Chew tobacco use (# tins/day): No Frequency of alcohol use: None Drug Abuse: None - Past Medical History Cardiac Medical History: Reports: Hx Atrial Fibrillation, Hx Coronary Artery Disease, Hx Hypertension Denies: Hx Heart Attack Pulmonary Medical History: Denies: Hx Asthma Neurological Medical History: Reports: Hx Cerebrovascular Accident - 02/22 RESOLVED. Denies: Hx Seizures Endocrine Medical History: Reports: Hx Diabetes Mellitus Type 2 Renal/ Medical History: Denies: Hx Peritoneal Dialysis GI Medical History: Denies: Hx Hepatitis, Hx Hiatal Hernia, Hx Ulcer Infectious Medical History: Denies: Hx Hepatitis Past Surgical History: Reports: Hx Appendectomy, Hx Cardiac Surgery - pacemaker placed, Hx Cholecystectomy, Hx Hysterectomy, Hx Pacemaker. Denies: Hx Mastectomy, Hx Open Heart Surgery - Immunizations History of Pneumococcal Vaccine: No Physical Exam - Vital signs Vitals: Temp Pulse Resp BP Pulse Ox 99.0 F 91 20 102/55 L 96 03/06/18 15:35 03/06/18 15:35 03/06/18 15:35 03/06/18 15:35 03/06/18 15:35 Course - Vital Signs Vital signs: Temp Pulse Resp BP Pulse Ox 99.2 F 70 16 113/57 L 98 03/07/18 12:05 03/07/18 12:05 03/07/18 12:05 03/07/18 12:05 03/07/18 12:05 - Laboratory Result Diagrams: 03/07/18 04:59 03/07/18 04:59 Laboratory results interpreted by me: 03/06/18 03/06/18 03/06/18 16:19 16:22 16:22 WBC 12.7 H Absolute Lymphocytes 5.2 H Carbon Dioxide 31 H Glucose 155 H POC Glucose 145 H Creatine Kinase 23 L Doctor's Discharge - Discharge Clinical Impression: Expressive aphasia Condition: Fair Disposition: ADMITTED OBSERVATION
[2018-03-07] MEDS: INSULIN GLARGINE,HUM.REC.ANLOG 300 UNIT/3 ML INSULN.PEN SUBCUT SCH (21:44)
[2018-03-07] MEDS: SIMVASTATIN 10 MG TABLET PO SCH (21:45)
[2018-03-07] MEDS: ACETAMINOPHEN 325 MG TABLET PO PRN (21:45)
[2018-03-08] MEDS: ISOSORBIDE MONONITRATE 30 MG TAB.ER.24H PO SCH (05:17)
[2018-03-08 06:19] LABS: ABSOLUTE BASOPHILS # (AUTO) 0.1 10^3/uL (0.0-0.2); ABSOLUTE EOSINOPHILS # (AUTO) 0.3 10^3/uL (0.0-0.6); ABSOLUTE LYMPHOCYTES (AUTO) 4.4 10^3/uL (0.5-4.7); ABSOLUTE MONOCYTES (AUTO) 1.6 10^3/uL (0.1-1.4); ABSOLUTE NEUT (AUTO) 6.4 10^3/uL (1.7-8.2); BASOPHILS % (AUTO) 0.6 % (0-2); EOSINOPHILS % (AUTO) 2.5 % (0-6); HEMATOCRIT 44.8 % (36.0-47.0); HEMOGLOBIN 15.2 g/dL (12.0-15.5); LYMPHOCYTES % (AUTO) 34.2 % (13-45); MEAN CORPUSCULAR HEMOGLOBIN 32.1 pg (27.0-33.4); MEAN CORPUSCULAR HGB CONC 33.9 g/dL (32.0-36.0); MEAN CORPUSCULAR VOLUME 95 fl (80-97); MONOCYTES % (AUTO) 12.8 % (3-13); PLATELET COUNT 357 10^3/uL (150-450); RED BLOOD COUNT 4.72 10^6/uL (3.72-5.28); RED CELL DISTRIBUTION WIDTH 12.8 % (11.5-14.0); SEGMENTED NEUTROPHILS % (AUTO) 49.9 % (42-78); TOTAL CELLS COUNTED % (AUTO) 100 %; WHITE BLOOD COUNT 12.7 10^3/uL (4.0-10.5)
[2018-03-08 08:13] VITALS: BP 121/55
[2018-03-08] MEDS: ACETAMINOPHEN 325 MG TABLET PO PRN (08:14)
[2018-03-08] MEDS: LOSARTAN POTASSIUM 50 MG TABLET PO SCH (09:29)
[2018-03-08] MEDS: DULOXETINE HCL 30 MG CAPSULE.DR PO SCH (09:30)
[2018-03-08] MEDS: SPIRONOLACTONE 25 MG TABLET PO SCH (09:30)
[2018-03-08] MEDS: ATENOLOL 50 MG TABLET PO SCH (09:31)
[2018-03-08] MEDS: FAMOTIDINE 20 MG TABLET PO SCH (09:31)
[2018-03-08] MEDS: DOXYCYCLINE HYCLATE 100 MG TABLET PO SCH (09:31)
[2018-03-08] MEDS: CLOPIDOGREL BISULFATE 75 MG TABLET PO SCH (09:32)
[2018-03-08] MEDS: SOTALOL HCL 80 MG TABLET PO SCH (09:32)
[2018-03-08] MEDS: DOCUSATE SODIUM 100 MG CAPSULE PO SCH (09:32)
[2018-03-08] MEDS: ASPIRIN 81 MG TABLET, ENT COATED PO SCH (09:32)
[2018-03-08] MEDS: ENOXAPARIN SODIUM INJ 40 MG/0.4 ML DISP.SYRIN SUBCUT SCH (09:33)
[2018-03-08] MEDS ORDERED: DIGOXIN 0.25 MG TABLET PO SCH (10:00)
--- NOTE | 2018-03-08 15:00 | PDOC DISCHARGE SUMMARY ---
General - Admit/Disc Date/PCP Admission Date/Primary Care Provider: 03/06/18 17:32 KAISER VALLEJO MD Discharge Date: 03/08/18 - Discharge Diagnosis (1) Expressive aphasia Is this a current diagnosis for this admission?: Yes Summary: 03/06/2018-plan is to put the patient in observation and telemetry. Cardiac monitoring. Swallowing evaluation. Speech therapy consult. PT OT consult. MRI of the brain without contrast was requested. Carotid Doppler was requested. Patient was already on aspirin started on Plavix 75 mg p.o. daily. Started on simvastatin 20 mg p.o. nightly. We are going to check lipid panel tomorrow. Neurochecks every 4 hours for 24 hours requested. Aspiration fall seizure precautions were placed. 03/07/2018-CT head was negative for acute changes. But it shows encephalomalasia. Unable to do the MRI of the head because of the pacemaker. We are going to continue to follow her closely speech consult was requested PT OT consult was requested. swallow evaluation was negative. 03/08/2018-CT head was negative for acute changes compared to the previous CT 3 years ago same encephalomalacia findings are seen. Unable to do the MRI of the head because of the pacemaker. CT of the neck was done negative for any abnormalities. Carotid Doppler also normal. And is able to express her thoughts and feelings better compared to yesterday. was advised to follow-up with neurology as an outpatient. Both of them agreed to do so. Events after the hospital admission. She was a started on aspirin, Plavix, simvastatin. Neurochecks during the hospital stay are negative (2) Diabetes Is this a current diagnosis for this admission?: Yes Summary: 03/06/2018-patient's blood sugar is 155 she was placed on insulin sliding scale before meals and at bedtime. Hemoglobin A1c was requested for tomorrow. Started on diabetic diet. Dietary consult was requested. Patient on glargine insulin 28 units at night. 03/07/2018 hemoglobin A1c is 7.1. Latest blood sugar is 113. She is on glargine insulin 20 units at bedtime and she is also on insulin sliding scale. Plan is to continue the present management. 03/08/2018-patient's latest blood sugar is 144 and hemoglobin A1c 7.1 patient was advised to continue glargine insulin 20 units at bedtime. (3) Atrial fibrillation Is this a current diagnosis for this admission?: Yes Summary: 03/06/2018 patient has history of atrial fibrillation not on Coumadin or Eliquis. EKG shows pacemaker rhythm. 03/07/2018 patient is giving history of atrial fibrillation. EKG shows pacemaker rhythm. She is not on any anticoagulation she was on aspirin 81 mg p.o. daily. I started her on Plavix 75 mg p.o. daily. 03/08/2018 patient is rate controlled atrial fibrillation EKG shows pacemaker rhythm she was on aspirin Plavix advised her to continue the present management. (4) Pacemaker Is this a current diagnosis for this admission?: Yes Summary: 03/06/2018-patient has a pacemaker. EKG shows pacemaker rhythm. Patient denies any chest pains. 03/07/2018 patient has history of pacemaker placed. Single. No complaints of chest pain. EKG shows pacemaker rhythm. 03/08/2018-patient has history of pacemaker EKG shows pacemaker rhythm. (5) Encephalomalacia Is this a current diagnosis for this admission?: Yes Summary: 03/06/2018-CT scan done today shows encephalopmalacia which is bilateral and white matter hypodensity, including of the posterior right frontal lobe, anterior left parietal lobe, left coronary radiator. The findings are compared to the CT scan was done 3 years ago no acute changes compared to the previous CT scan that was done 3 years ago. 03/07/2018-patient has an encephalomalacia on the CT scan she has the same findings in the CT done 3 years ago. Unable to do the MRI of the brain. Carotid Doppler is pending. Going to arrange for the CTA of the neck with IV contrast. 03/08/2018-CT of the neck and carotid Doppler negative unable to do the MRI of the brain because of the pacemaker. CT scan was done during the admission was compared to the CT scan was done 3 years ago findings are similar with encephalomalacia (6) Leukocytosis Is this a current diagnosis for this admission?: Yes Summary: 03/07/2018-WBCs increased to 15,700, patient is having the low-grade fever temperature is 99.7. Patient was started on doxycycline 100 mg p.o. twice daily. Chest x-ray was negative for infiltrates. I am going to request for u rine analysis urine culture and blood cultures times 2. I am going to keep the patient on observation for another day because of the increasing WBC and low- grade fever. 03/08/2018 WBC is improved to 12,700 patient is afebrile she was started on doxycycline 100 mg p.o. twice daily I gave the prescription for doxycycline twice daily for 1 week. - Additional Information Resuscitation Status: Full Code Discharge Diet: Diabetic Discharge Activity: Activity As Tolerated Prescriptions: Clopidogrel Bisulfate [Plavix 75 mg Tablet] 75 mg PO DAILY #30 tablet Doxycycline Hyclate [Vibramycin 100 mg Tablet] 100 mg PO Q12 #14 tablet Simvastatin [Zocor 20 mg Tablet] 20 mg PO QHS #30 tablet Home Medications: Bisoprolol Fumarate [Zebeta 5 mg Tablet] 2.5 mg PO QAM 03/06/18 Digoxin [Lanoxin 0.25 mg Tablet] 0.25 mg PO Q2D 03/06/18 Duloxetine HCl [Cymbalta] 60 mg PO DAILY 03/06/18 Furosemide [Lasix 40 mg Tablet] 60 mg PO BID 03/06/18 Insulin Glargine,Hum.rec.anlog [Lantus Insulin 100 Unit/mL] 25 units SQ QHS 03/06/18 Isosorbide Mononitrate [Imdur 30 mg Tablet.er] 30 mg PO Q8 03/06/18 Losartan Potassium [Cozaar 100 mg Tablet] 100 mg PO DAILY 03/06/18 Sotalol HCl [Betapace 80 mg Tablet] 80 mg PO Q12 03/06/18 Spironolactone [Aldactone 25 mg Tablet] 12.5 mg PO DAILY 03/06/18 Aspirin [Ecotrin 81 mg EC Tablet] 81 mg PO DAILY tabec 03/08/18 Clopidogrel Bisulfate [Plavix 75 mg Tablet] 75 mg PO DAILY #30 tablet 03/08/18 Doxycycline Hyclate [Vibramycin 100 mg Tablet] 100 mg PO Q12 #14 tablet 03/08/18 Simvastatin [Zocor 10 mg Tablet] 20 mg PO QHS tablet 03/08/18 Simvastatin [Zocor 20 mg Tablet] 20 mg PO QHS #30 tablet 03/08/18 History of Present Illness History of Present Illness: DIANA OWENS is a 67 year old female history of coronary artery disease with defibrillator placement, history of wall replacement patient does not know exactly what kind of surgery, hypertension, diabetes mellitus, hyperlipidemia, came to the emergency room with complaints of difficulty in expressing her feelings and thoughts. According to the patient know what to say but is unable to say so. Denies any complaints of headaches dizziness falls, seizures. Problems with urination or bowel movement. His any recent upper respiratory tract infections. Denies any problems with walking. denies any nausea vomiting diarrhea. In the emergency room CT head without contrast was done and was compared to previous CT scan done 3 years ago basically showing similar findings an encephalomalacia. He went to see the patient in the emergency room patient is comfortably in the bed smiling able to follow the commands. But she has a difficulty in expression she is unable to give her date of unable to give her home address unable to give her past medical history. Physical Exam Vital Signs: Temp Pulse Resp BP Pulse Ox 98.2 F 79 16 121/55 L 99 03/08/18 10:15 03/08/18 10:15 03/08/18 10:15 03/08/18 10:15 03/08/18 10:15 Intake & Output 03/07/18 03/08/18 03/09/18 06:59 06:59 06:59 Intake Total 875 Output Total 0 Balance 0 875 Weight 58.4 kg 62.1 kg General appearance: PRESENT: no acute distress Head exam: PRESENT: atraumatic Eye exam: PRESENT: PERRLA Mouth exam: PRESENT: moist Respiratory exam: PRESENT: clear to auscultation shanique. ABSENT: rales, rhonchi, wheezes Cardiovascular exam: PRESENT: RRR. ABSENT: diastolic murmur, rubs, systolic murmur GI/Abdominal exam: PRESENT: normal bowel sounds, soft. ABSENT: distended, guarding, mass, organolmegaly, rebound, tenderness Neurological exam: PRESENT: CN II-XII grossly intact, other - Patient still has expressive aphasia. Psychiatric exam: PRESENT: appropriate affect, normal mood. ABSENT: homicidal ideation, suicidal ideation Results Laboratory Results: 03/08/18 04:57 03/07/18 04:59 03/08/18 04:57 WBC 12.7 H RBC 4.72 Hgb 15.2 Hct 44.8 MCV 95 MCH 32.1 MCHC 33.9 RDW 12.8 Plt Count 357 Seg Neutrophils % 49.9 Lymphocytes % 34.2 Monocytes % 12.8 Eosinophils % 2.5 Basophils % 0.6 Absolute Neutrophils 6.4 Absolute Lymphocytes 4.4 Absolute Monocytes 1.6 H Absolute Eosinophils 0.3 Absolute Basophils 0.1 03/06/18 03/06/18 03/06/18 16:22 16:22 22:06 Creatine Kinase 23 L 23 L CK-MB (CK-2) 0.69 Troponin I 0.036 NT-Pro-B Natriuret Pep 03/06/18 03/07/18 03/07/18 22:06 04:59 04:59 Creatine Kinase < 20 L CK-MB (CK-2) 0.40 0.40 Troponin I 0.033 0.037 NT-Pro-B Natriuret Pep 3880 H 03/07/18 03/07/18 10:50 10:50 Creatine Kinase < 20 L CK-MB (CK-2) 0.48 Troponin I 0.030 NT-Pro-B Natriuret Pep Impressions: Carotid Doppler Study 03/06/18 00:00 IMPRESSION: NO HEMODYNAMICALLY SIGNIFICANT STENOSIS. Chest X-Ray 03/06/18 15:45 IMPRESSION: Stable, chronic changes. Head CT 03/06/18 15:45 IMPRESSION: No CT evidence of acute stroke or hemorrhage. There are multiple bilateral areas of encephalomalacia and white matter hypodensity, including of the posterior right frontal lobe, anterior left parietal lobe, and left tai radiata, these findings are unchanged from examination dated 02/17/2016. MRI may be used to evaluate for acutely superimposed diffusion restricting infarction if desired. EVIDENCE OF ACUTE STROKE: NO. Neck CTA 03/07/18 00:00 IMPRESSION: NORMAL CTA OF THE EXTRA-CRANIAL CAROTID AND VERTEBRAL ARTERIES. Qualifiers - * PATIENT BEING DISCHARGED WITH ANY OF THE FOLLOWING DIAGNOSIS: No VTE patient discharged on overlapping Therapy?: Yes
== END 2018-03-08 10:58 | disposition home or self-care (01) ==
LOC: ER 15:31 → EH 17:32 → 3W 21:10
PROVIDERS: ADMIT Internal Medicine; ATTEND Internal Medicine
DX: R47.01 Aphasia (principal); G93.89 Other specified disorders of brain; E11.9 Type 2 diabetes mellitus without complications; I48.2 Chronic atrial fibrillation; D72.829 Elevated white blood cell count, unspecified; I10 Essential (primary) hypertension; R50.9 Fever, unspecified; E78.5 Hyperlipidemia, unspecified; R29.701 NIHSS score 1; M62.81 Muscle weakness (generalized); Z95.0 Presence of cardiac pacemaker; Z79.82 Long term (current) use of aspirin; Z79.899 Other long term (current) drug therapy; Z90.49 Acquired absence of other specified parts of digestive tract; Z79.4 Long term (current) use of insulin; Z86.73 Personal history of transient ischemic attack (TIA), and cerebral infarction without residual deficits
CPT/HCPCS: 93005 ×2; 99285; 36415 ×3; 82553 ×2; 82962 ×3; 82550 ×2; 83735; 84443; 85025 ×3; 85610 ×2; 85730; 80053 ×2; 84484 ×2; 83036; 80061; 83880; 93880; 71045; 70450; 70498; 93010 ×2; 97116; 97161; G0378 ×4; A9270 ×28; J1650; J3490 ×3; G8978; G8979; G8980; J1815

== ENCOUNTER 2019-10-10 14:49 | Emergency (ER) | payer MEDICARE ==
[2019-10-10] MEDS ORDERED: NORMAL SALINE 1000 ML 1,000 ML IV ONE (15:29)
[2019-10-10 16:24] LABS: ABSOLUTE BASOPHILS # (AUTO) 0.1 10^3/uL (0.0-0.2); ABSOLUTE EOSINOPHILS # (AUTO) 0.1 10^3/uL (0.0-0.6); ABSOLUTE LYMPHOCYTES (AUTO) 4.7 10^3/uL (0.5-4.7); ABSOLUTE MONOCYTES (AUTO) 1.4 10^3/uL (0.1-1.4); ABSOLUTE NEUT (AUTO) 9.1 10^3/uL (1.7-8.2); BASOPHILS % (AUTO) 0.3 % (0-2); EOSINOPHILS % (AUTO) 0.9 % (0-6); HEMOGLOBIN 10.9 g/dL (12.0-15.5); LYMPHOCYTES % (AUTO) 30.6 % (13-45); MEAN CORPUSCULAR HEMOGLOBIN 26.4 pg (27.0-33.4); MEAN CORPUSCULAR HGB CONC 32.1 g/dL (32.0-36.0); MEAN CORPUSCULAR VOLUME 82 fl (80-97); MONOCYTES % (AUTO) 9.3 % (3-13); PLATELET COUNT 615 10^3/uL (150-450); RED BLOOD COUNT 4.13 10^6/uL (3.72-5.28); SEGMENTED NEUTROPHILS % (AUTO) 58.9 % (42-78); TOTAL CELLS COUNTED % (AUTO) 100 %; WHITE BLOOD COUNT 15.4 10^3/uL (4.0-10.5)
[2019-10-10 16:25] LABS: INTERNATIONAL RATION (INR) 1.01; PROTHROMBIN TIME 13.5 SEC (11.4-15.4)
--- NOTE | 2019-10-10 16:25 | RADIOLOGY REPORT (SQ) ---
EXAM DESCRIPTION: CHEST SINGLE VIEW IMAGES COMPLETED DATE/TIME: 10/10/2019 3:50 pm REASON FOR STUDY: hypotension COMPARISON: 03/06/2018 TECHNIQUE: Single frontal radiographic view of the chest acquired. NUMBER OF VIEWS: One view. LIMITATIONS: None. FINDINGS: LUNGS AND PLEURA: No pneumothorax. No consolidation or pleural effusion. Scattered calcif ied granulomas. MEDIASTINUM AND HILAR STRUCTURES: Stable. Numerous calcified lymph nodes. HEART AND VASCULAR STRUCTURES: Stable. BONES: No acute findings. HARDWARE: Cardiac defibrillator. OTHER: No other significant finding. IMPRESSION: NO ACUTE FINDINGS. TECHNICAL DOCUMENTATION: JOB ID: [id number] [id number] 2010 [employer]- All Rights Reserved Reading location - IP/workstation name: [email or web address]
[2019-10-10 16:31] LABS: ALBUMIN 4.8 g/dL (3.5-5.0); ALKALINE PHOSPHATASE 85 U/L (38-126); ANION GAP 11 (5-19); ASPARTATE AMINO TRANSFERASE 28 U/L (14-36); BILIRUBIN,DIRECT 0.1 mg/dL (0.0-0.4); BILIRUBIN,TOTAL 0.6 mg/dL (0.2-1.3); BLOOD UREA NITROGEN 46 mg/dL (7-20); CALCIUM 9.7 mg/dL (8.4-10.2); CARBON DIOXIDE 27 mmol/L (22-30); CHLORIDE 91 mmol/L (98-107); DIGOXIN 0.78 ng/mL (0.8-2.0); GLUCOSE 191 mg/dL (75-110); POTASSIUM 4.7 mmol/L (3.6-5.0); TOTAL PROTEIN 8.5 g/dL (6.3-8.2)
--- NOTE | 2019-10-10 17:06 | ER Document Report ---
ED General - General Chief Complaint: Dizziness Stated Complaint: BLOOD SUGAR PROBLEMS,WEAKNESS Time Seen by Provider: 10/10/19 15:31 Primary Care Provider: KAISER VALLEJO MD [NO LOCAL MD] - Follow up as needed Notes: 68-year-old female with a history of cardiomyopathy and congestive heart failure presents emergency department complaining of elevated blood sugar for the past month that has specifically been more elevated for the past 1 week. Patient states this is associated with feeling dizzy and woozy as well as like her heart is pounding and racing anytime she stands up for the past 3 to 4 days. Patient states that when she checked her blood pressure it was in the 80s but she also thinks that her blood pressure always runs in the 80s. Patient states that every time she stands up she gets so dizzy she has to sit down or else she will fall over. States that all she has done for the past 2 days is sleep. Denies any nausea, vomiting, diarrhea. Denies any chest pain. Admits shortness of breath and dyspnea on exertion. Denies any dark black or tarry stools, denies any blood in the stool. Patient also notes that she is a diabetic and states that her blood sugar has been very difficult to control. She was started on Starlix 60 mg 3 times a day 4 weeks ago. States she is supposed to be taking it 30 minutes prior to eating but she usually remembers to take it while she is eating. Patient has been discussing this with her PA Johanne Shrestha out of [place]. States that she last spoke with her on Friday and her Starlix was increased. States that on Friday her blood sugar was then 340. Over the past month it had been running 1 50-1 75. States that on Friday she checked it every 5 minutes and found it was 348 then 266 then 263 then 281 then 277. Patient denies any dietary i ndiscretions, states she has been following her diet well. Only other medication changes she was taken off of her sotalol several months ago. TRAVEL OUTSIDE OF THE [place] IN LAST 30 DAYS: No - Related Data Allergies/Adverse Reactions: enalapril Allergy (Severe, Verified 03/06/18 15:39) Anaphylaxis insulin detemir [From Levemir] Allergy (Mild, Verified 03/06/18 15:39) Past Medical History - General Information source: Patient - Social History Smoking Status: Never Smoker Frequency of alcohol use: None Drug Abuse: None Family History: Reviewed & Not Pertinent Patient has homicidal ideation: No - Past Medical History Cardiac Medical History: Reports: Hx Atrial Fibrillation, Hx Coronary Artery Disease, Hx Hypertension, Hx Heart Murmur Denies: Hx Heart Attack Pulmonary Medical History: Denies: Hx Asthma Neurological Medical History: Reports: Hx Cerebrovascular Accident - 02/22 RESOLVED. Denies: Hx Seizures Endocrine Medical History: Reports: Hx Diabetes Mellitus Type 2 Renal/ Medical History: Denies: Hx Peritoneal Dialysis GI Medical History: Denies: Hx Hepatitis, Hx Hiatal Hernia, Hx Ulcer Infectious Medical History: Denies: Hx Hepatitis Past Surgical History: Reports: Hx Appendectomy, Hx Cardiac Surgery - pacemaker placed, Hx Cholecystectomy, Hx Hysterectomy, Hx Pacemaker. Denies: Hx Mastectomy, Hx Open Heart Surgery Review of Systems - Review of Systems Constitutional: See HPI, Weakness. denies: Chills, Diaphoresis, Malaise EENT: No symptoms reported Cardiovascular: See HPI, Palpitations, Heart racing, Dyspnea, Dizziness, Lightheaded. denies: Chest pain, Orthopnea Respiratory: See HPI, Short of breath. denies: Cough Gastrointestinal: No symptoms reported Neurological/Psychological: See HPI, Weakness -: Yes All other systems reviewed and negative Physical Exam - Vital signs Vitals: Resp BP Pulse Ox 18 98/56 L 99 10/10/19 15:07 10/10/19 15:07 10/10/19 15:07 Interpretation: Hypotensive - Notes Notes: GENERAL: Alert, interacts well. No acute distress. HEAD: Normocephalic, atraumatic EYES: Pupils equal, round and reactive to light, extraocular movements intact. ENT: Oral mucosa moist, tongue midline. NECK: Full range of motion, supple, trachea midline. LUNGS: Clear to auscultation bilaterally, no wheezes, rales or rhonchi, no respiratory distress. HEART: Regular rate and rhythm, 2/6 systolic murmur, no gallops or rubs. ABDOMEN: Soft, nontender, nondistended, bowel sounds present in all 4 quadrants. EXTREMITIES: Moves all 4 extremities spontaneously, no edema, radial and dorsalis pedis pulses 2/4 bilaterally. No cyanosis. NEUROLOGICAL: Alert and oriented x3, normal speech, no facial droop, biceps and patellar DTRs 2+ bilaterally. PSYCH: Normal mood, normal affect. SKIN: Warm, Dry, normal turgor, no rashes or lesions noted. Course - Re-evaluation Re-evalutation: 10/10/19 17:08 CBC shows leukocytosis of 15.4, anemia with a hemoglobin of 10.9, coags are normal, sodium low at 129. BUN and creatinine both elevated at 46 and 1.6 respectively, this is elevated compared to prior labs in 2018, troponin is technically negative at 0.034, proBNP elevated at 1550. Digoxin level is actually low at 0.78. Chest X-Ray 10/10/19 15:33 IMPRESSION: NO ACUTE FINDINGS. 10/10/19 20:32 Repeat troponin is not significantly changed to 0.038, BUN and creatinine are both downtrending with hydration at 40 and 1.28 respectively, chest x-ray does not show any signs of congestive heart failure. 10/10/19 20:50 Lactic acid is still normal. Patient has been up and walk to the bathroom independently without any assistance twice now. Patient's blood pressure has been over 100 systolic for at least the past 2 hours. Patient states she feels significantly better. Discussed with patient admission to the hospital for further testing versus discharged home for close outpatient follow-up. Patient would prefer to be discharged home for close outpatient follow-up. She has a follow-up appointment with Dr. Guzmán for an echocardiogram and specific follow-up for her history of congestive heart failure anyway on . Patient also is able to reach Johanne Shrestha her primary care provider quickly. I will print this patient all of her laboratory studies, she will arrange outpatient follow-up with her primary care provider to have her renal function rechecked within the next 2 weeks and she will return to the emergency department for any new or concerning symptoms. Suspect that the patient's dehydration actually came from her hyperglycemia leading to frequent urination which then made her dehydrated which made her hypotensive which made her so orthostatic that she could not get out of bed so that she could not continue to drink which is further worsened the problem. Patient is aware that she does have a leukocytosis that I cannot explain and she will return should she develop any symptoms of infection. - Vital Signs Vital signs: Temp Pulse Resp BP Pulse Ox 98.0 F 78 24 H 116/57 L 99 10/10/19 16:04 10/10/19 15:08 10/10/19 20:40 10/10/19 20:40 10/10/19 15:59 - Laboratory Result Diagrams: 10/10/19 15:15 10/10/19 19:02 Laboratory results interpreted by me: 10/10/19 10/10/19 10/10/19 15:00 15:15 15:15 WBC 15.4 H Hgb 10.9 L Hct 34.0 L MCH 26.4 L RDW 17.0 H Plt Count 615 H Absolute Neuts (auto) 9.1 H Sodium 129.0 L Chloride 91 L BUN 46 H Creatinine 1.60 H Est GFR ( Amer) 39 L Est GFR (MDRD) Non-Af 32 L Glucose 191 H POC Glucose 218 H NT-Pro-B Natriuret Pep Total Protein 8.5 H Urine Glucose (UA) Leukocyte Esterase Rfl Digoxin 0.78 L 10/10/19 10/10/19 10/10/19 15:15 16:45 19:02 WBC Hgb Hct MCH RDW Plt Count Absolute Neuts (auto) Sodium 132.8 L Chloride BUN 40 H Creatinine 1.28 H Est GFR ( Amer) 50 L Est GFR (MDRD) Non-Af 41 L Glucose 121 H POC Glucose NT-Pro-B Natriuret Pep 1550 H Total Protein Urine Glucose (UA) 50 H Leukocyte Esterase Rfl SMALL H Digoxin - EKG Interpretation by Me Additional EKG results interpreted by me: 10/10/19 17:07 EKG shows a ventricularly paced rhythm at a rate of 94, no ST segment elevations or depressions, no T wave inversions, no significant change from prior EKG on 03/06/2018 per my interpretation. Discharge - Discharge Clinical Impression: Orthostatic hypotension, Acute kidney injury, Dehydration Hyperglycemia due to type 2 diabetes mellitus Qualifiers: Diabetes mellitus custodial insulin use: without emt intermediate use Qualified Code(s): E11.65 - Type 2 diabetes mellitus with hyperglycemia Condition: Stable Disposition: HOME, SELF-CARE Additional Instructions: Today your blood pressure was quite low when you arrive however after receiving fluids your blood pressure improved and you felt much better. There is no sign of a heart attack today. You do have some acute kidney injury. It did improve with hydration but I would like to have your kidney function rechecked within the next 2 weeks by your primary care provider. I suspect that part of your acute kidney injury and your low blood pressure was coming from the increased urination due to your increased blood sugar. If you notice that your blood sugar is running high you do need to increase your fluid intake carefully in order to make up for the increased fluid losses from the increased blood sugar. I do want you to discuss today's visit carefully with your primary care provider Johanne Shrestha as well as with Doctor Edis Estrada on when you see him for your echocardiogram. Please return here for blood sugar that elevates back into the 200-300 range, increasing fatigue, dizziness when you stand up, shortness of breath, fevers or any new or concerning symptoms. Referrals: KAISER VALLEJO MD [NO LOCAL MD] - Follow up as needed BECKI SHRESTHA MD [NO LOCAL MD] - Follow up as needed
[2019-10-10 17:35] LABS: APPEARANCE,URINE CLEAR; BILIRUBIN,URINE NEGATIVE (NEGATIVE); COLOR,URINE STRAW; GLUCOSE, URINE 50 mg/dL (NEGATIVE); KETONES,URINE NEGATIVE (NEGATIVE); PROTEIN,URINE NEGATIVE (NEGATIVE); URINE SPECIFIC GRAVITY 1.004; UROBILINOGEN,URINE NEGATIVE mg/dL (<2.0)
[2019-10-10 17:54] LABS: VENOUS BLOOD BASE EXCESS -0.3 mmol/L; VENOUS BLOOD HCO3 25.4 mmol/L (20-32); VENOUS BLOOD PCO2 45.4 mmHg (35-63); VENOUS BLOOD PH 7.37 (7.30-7.42)
[2019-10-10 19:50] LABS: ANION GAP 6 (5-19); BLOOD UREA NITROGEN 40 mg/dL (7-20); CALCIUM 8.8 mg/dL (8.4-10.2); CARBON DIOXIDE 28 mmol/L (22-30); CHLORIDE 99 mmol/L (98-107); GLUCOSE 121 mg/dL (75-110); POTASSIUM 4.8 mmol/L (3.6-5.0)
[2019-10-10 20:42] VITALS: BP 116/57
--- NOTE | 2019-10-11 01:12 | EKG REPORT ---
SEVERITY:- ABNORMAL ECG - VENTRICULAR-PACED RHYTHM : Confirmed by: Leatha Gillespie MD 11-Oct-2019 01:11:36
== END 2019-10-10 21:09 | disposition home or self-care (01) ==
LOC: ER 14:49
DX: E11.65 Type 2 diabetes mellitus with hyperglycemia (principal); E86.0 Dehydration; I95.1 Orthostatic hypotension; R00.2 Palpitations; D72.829 Elevated white blood cell count, unspecified; N17.9 Acute kidney failure, unspecified; R06.02 Shortness of breath; R53.1 Weakness; I25.10 Atherosclerotic heart disease of native coronary artery without angina pectoris; I10 Essential (primary) hypertension; Z79.84 Long term (current) use of oral hypoglycemic drugs; Z91.14 Patient's other noncompliance with medication regimen; Z87.892 Personal history of anaphylaxis; Z88.8 Allergy status to other drugs, medicaments and biological substances
CPT/HCPCS: 93005; 99285; 96360; 36415; 87040; 87086; 82962; 80162; 83605; 84443; 85025; 85610; 87088; 80053; 81001; 84484; 82803; 83880; 71045; 93010; J7030; 87186